=== PATIENT | male | born 2000 | race Caucasian/White ===

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

== ENCOUNTER 2022-02-03 00:21 | Emergency (ER) | payer BC ==
[2022-02-03] MEDS ORDERED: Ondansetron ODT 4 MG TAB ONE (00:47)
== END 2022-02-03 01:24 | disposition home or self-care (01) ==
LOC: NAV ERS 00:21
DX: R11.2 Nausea with vomiting, unspecified (principal)
CPT/HCPCS: 99283; Q0162

== ENCOUNTER 2022-02-15 19:46 | Emergency (ER) | payer BC | END 2022-02-15 20:28 | disposition home or self-care (01) | LOC: NAV ERS 19:46 | DX: R07.9 Chest pain, unspecified (principal); F17.210 Nicotine dependence, cigarettes, uncomplicated | CPT/HCPCS: 93005 ==